=== PATIENT | female | born 1940 | race Caucasian/White ===

== ENCOUNTER 2016-10-29 04:44 | Emergency (ER) | payer MEDICARE ==
[2016-10-29] MEDS ORDERED: DEXTROSE 5% 250ML 250 ML ONE (04:59)
[2016-10-29] MEDS ORDERED: EPINEPHrine INJ 0.1 MG/ML 10 ML SYG IV ONE (05:00)
[2016-10-29] MEDS ORDERED: SODIUM BICARBONATE SYRINGE 50 MEQ/50 ML SYG IV ONE (05:00)
[2016-10-29] MEDS ORDERED: NOREPINEPHRINE BITARTRATE 4 MG/4 ML VIAL IVPB ONE (05:00)
[2016-10-29 05:52] VITALS: BP 0/0; O2SAT 75
--- NOTE | 2016-10-29 07:09 | ED.PDOC ---
History of Present Illness - General Chief Complaint: Cardiac Respiratory Arrest Stated Complaint: cpr Time Seen by Provider: 10/29/16 04:45 Source: EMS, other - assisted personelle Exam Limitations: clinical condition - History of Present Illness Initial Comments: Patient presents to E.D. by EMS from [facility] in cardiac arrest. Patient was undergoing CPR when EMS arrived at [facility]. See nurses notes for approximate timing. Patient was reported to be in PEA upon EMS arrival. She received epinephrine x 2 and bicarbonate x 1 en route. Upon arrival, patient was unresponsive and undergoing chest compressions and BVM ventilation. Patient was permanently ventilated prior to the arrest. Patient was given epinephrine x 2 and bicarbonate x 1. She briefly went from PEA to a mixture of V tach and V fib. One shock was delivered at 200 KJ. There were slight carotid pulses. CPR was continued according to ACLS protocol. V Fib was later obtained and a second shock at 300 KJ was administered. Compressions resumed. Patient was started on Levaphed but went back into PEA and never recovered. Patient was pronounced in the E.D. See nurses notes for specific times. Timing/Duration: 1 hour Severity: severe Improving Factors: nothing Worsening Factors: nothing Associated Symptoms: other - unable to obtain any more history due to patient condition Allergies/Adverse Reactions: Allergies UNOBTAINABLE Allergy (Verified 10/29/16 05:28) Review of Systems - Review of Systems Unable to Obtain Due To: clinical condition Past Medical History (General) - Patient Medical History Hx of COPD: Yes Hx Cardiac Disorders: Yes - hx of svt Hx Congestive Heart Failure: Yes Hx Hypertension: Yes - Vaccination History Hx Tetanus, Diphtheria Vaccination: No Hx Influenza Vaccination: No Hx Pneumococcal Vaccination: No Immunizations Up to Date: No Immunizations Comment: unknown - Social History Hx Tobacco Use: No Hx Alcohol Use: No Hx Substance Use: No Hx Substance Use Treatment: No Hx Depression: No - Activities of Daily Living Skilled Nursing/Assisted Living (if applicable):: [facility] - Female History Patient is a Female of Child Bearing Age (10 -59 yrs old): No Patient : No Family Medical History - Family History Mother Family History: Unknown Living Status: Unknown Physical Exam - Physical Exam General Appearance: Other - unresponsive Eye Exam: bilateral other - fixed and dilated Ears, Nose, Throat: other - right sided crepitus Neck: other - right sided crepitus Respiratory: other - No breath sounds except with BVM. No spontaneous respiratory effort Cardiovascular/Chest: other - no pulses. No heart sounds Peripheral Pulses: radial,right: 0, radial,left: 0, femoral,right: 0, femoral, left: 0, popliteal,right: 0, popliteal,left: 0, dorsalis pedis,right: 0, dorsalis pedis,left: 0, posterior tibialis,right: 0, posterior tibialis,left: 0 Gastrointestinal/Abdominal: other - no bowel sounds Neurologic: other - Pupils fixed and dilated. No corneal reflex. Sternal rub elicited no response. No peripheral pain response. DTR: 0: Biceps, left, Biceps, right, Triceps, left, Triceps, right, Brachioradialis, left, Brachioradialis, right, Achilles, left, Achilles, right, Patellar, left, Patellar, right, Babinski, left, Babinski, right Skin Exam: mottled, pallor Progress - Progress Progress: 10/29/16 07:11 Patient presents to E.D. by EMS from [facility] in cardiac arrest. Patient was undergoing CPR when EMS arrived at [facility]. See nurses notes for approximate timing. Patient was reported to be in PEA upon EMS arrival. She received epinephrine x 2 and bicarbonate x 1 en route. Upon arrival, patient was unresponsive and undergoing chest compressions and BVM ventilation. Patient was permanently ventilated prior to the arrest. Patient was given epinephrine x 2 and bicarbonate x 1. She briefly went from PEA to a mixture of V tach and V fib. One shock was delivered at 200 KJ. There were slight carotid pulses. CPR was continued according to ACLS protocol. V Fib was later obtained and a second shock at 300 KJ was administered. Compressions resumed. Patient was started on Levaphed but went back into PEA and never recovered. Patient was pronounced in the E.D. See nurses notes for specific times. Departure - Departure Disposition: Condition: Serious Departure Forms: ED Discharge - Pt. Copy, Patient Portal Self Enrollment
== END 2016-10-29 05:10 | disposition expired ==
LOC: ER 04:44
DX: I46.9 Cardiac arrest, cause unspecified (principal); J44.9 Chronic obstructive pulmonary disease, unspecified; I47.1 Supraventricular tachycardia
CPT/HCPCS: 92950; 93005; 94770; J7060